=== PATIENT | female | born 1955 | race Caucasian/White ===

== ENCOUNTER → 2017-10-04 | Outpatient (CLI) | payer BC ==
[~2017-10-04] MED LIST: CEPH500C; ESTROGEN; FAMO-119 PO; FEXO180T84 PO; HYDR-1231 PO; HYDR-91 PO; LEVO500T69 PO; LVT.1T PO; METR250T32; NITR-33 PO; SUCR1TAB36 PO; TRAM50TA2 PO
--- NOTE | 2017-10-04 20:46 | Diagnostic Imaging Report ---
EXAMINATION: Three views of the lumbar spine. INDICATION: Back pain. FINDINGS: There is minimal anterior translation of L4 over L5. The vertebral body heights are preserved. Disc heights are also preserved. No significant osteophyte is noted. Mild sclerotic changes of the lower lumbar facet joints are suggested. Mild degenerative changes of the SI joints noted. IMPRESSION: There is minimal anterior translation of L4 over L5. Mild lower lumbar spine and SI joint degenerative changes seen. Dictated by: Dictated on workstation # [id number]
--- NOTE | 2017-10-04 21:08 | Diagnostic Imaging Report ---
AP and frog lateral views of the left hip. INDICATION: Left hip pain. FINDINGS: No fracture, dislocation or radiopaque foreign body seen. Minimal degenerative sclerotic change at the left hip is noted. Minimal degenerative sclerotic change at the symphysis pubis is also seen. IMPRESSION: No acute process. Dictated by: Dictated on workstation # [id number]
== END ==
LOC: RAD 14:18
PROVIDERS: ATTEND Family Medicine
DX: M47.817 Spondylosis without myelopathy or radiculopathy, lumbosacral region (principal); M25.552 Pain in left hip
CPT/HCPCS: 72100; 73502

== ENCOUNTER → 2020-06-26 | Outpatient (CLI) | payer MEDICARE, OTHER ==
[~2020-06-26] MED LIST changes: +METR-143; -METR250T32; -TRAM50TA2 PO; +TRM50T PO
--- NOTE | 2020-06-27 15:50 | Diagnostic Imaging Report ---
NAME: Ania Ellis. : 1955. EXAMINATION: CT abdomen and pelvis without contrast on 06/26/2020. INDICATION: Right flank pain with history of kidney stones. TECHNIQUE: Axial imaging through the abdomen and pelvis was performed without contrast. COMPARISON: Prior CT from 10/13/2016. FINDINGS: The lung bases are clear. The liver and gallbladder are unremarkable. No biliary ductal dilatation is identified. The pancreas and spleen are unremarkable. No adrenal mass is detected. Renal cortical low densities are again noted, suggestive of cysts. There are punctate calcifications in both kidneys, similar to the prior exam. No definite ureteral or bladder calculi are seen. There is no hydronephrosis detected. The small and large bowel loops are of normal caliber. The appendix is unremarkable. There is no free fluid or fluid collection detected. The uterus is unremarkable. The bony structures are nonacute. IMPRESSION: The findings are consistent with bilateral nonobstructing nephrolithiasis as well as bilateral renal cortical cysts. No definite ureteral calculus or hydronephrosis is detected. No acute abnormality in the abdomen or pelvis is identified. Dictated by: Dictated on workstation # [id number]
== END ==
LOC: RAD 07:23
PROVIDERS: ATTEND Urology
DX: R10.9 Unspecified abdominal pain (principal); Z87.442 Personal history of urinary calculi; Z87.440 Personal history of urinary (tract) infections
CPT/HCPCS: 74176

== ENCOUNTER 2021-07-30 18:45 | Emergency (ER) | payer MEDICARE, OTHER ==
[~2021-07-30] VITALS: Ht 152 cm; Wt 46.3 kg
[2021-07-30] MEDS ORDERED: ALEN70TA80 (19:52)
[2021-07-30] MEDS ORDERED: DOXY100C2 (19:52)
[2021-07-30 19:57] LABS: BILIRUBIN,URINE 1+ (NEGATIVE); CLARITY,URINE CLEAR; COLOR,URINE RED; GLUCOSE, URINE (UA) TRACE (NEGATIVE); KETONES,URINE NEGATIVE (NEGATIVE); LEUKOCYTE ESTERASE ,URINE TRACE (NEGATIVE); NITRITE,URINE POSITIVE (NEGATIVE); PROTEIN,URINE 1+ (NEGATIVE)
[2021-07-30 20:04] LABS: BACTERIA,URINE FEW /HPF
--- NOTE | 2021-07-30 20:12 | ED GU-Female ---
General Chief Complaint: - Reproductive Stated Complaint: UTI Nursing Triage Note: c/o burning with urination, lower abdominal, right flank pain. hx renal stones/chronic uti. Source: patient Exam Limitations: no limitations (LEATHA BROWN APRN) History of Present Illness Date Seen by Provider: Jul 30, 2021 Time Seen by Provider: 20:10 Initial Comments To ER with burning upon urination, lower abdominal pain, history of frequent recurrent urinary tract infections for which she is on suppressive Macrodantin. She follows with Dr. Marks Timing/Duration: just prior to arrival Severity/Quality: moderate Location: suprapubic Radiation: none Activities at Onset: none Prior Genitourinary Problems: none Associated Symptoms: denies symptoms (LEATHA BROWN APRN) Allergies and Home Medications Allergies Coded Allergies: Penicillins (Unverified Allergy, Intermediate, ANAPHYLAXIS, 03/07/12) Patient Home Medication List Home Medication List Reviewed: Yes (LEATHA BROWN APRN) Alendronate Sodium (Alendronate Sodium) 70 Mg Tablet, (Reported) Entered as Reported by: KELL BENOIT on 07/30/211951 Last Action: New Order Doxycycline Hyclate (Doxycycline Hyclate) 100 Mg Capsule, (Reported) Entered as Reported by: KELL BENOIT on 07/30/211951 Last Action: New Order Hyoscyamine Sulfate (Levsin-Sl) 0.125 Mg Tab.subl, 0.125 MG SL Q4H PRN for PAIN-SEE DOSE INSTRUCTIONS Prescribed by: LEATHA RBOWN on 07/30/212049 Levothyroxine Sodium (Synthroid) 100 Mcg Tablet, 1 EACH PO DAILY, (Reported) Entered as Reported by: LAYO IZQUIERDO on 03/07/121504 Last Action: Last Taken Edited [Estrogen] , DAILY, (Reported) Entered as Reported by: LAYO IZQUIERDO on 03/07/121504 Last Action: Last Taken Edited Discontinued Medications Famotidine (Pepcid) 20 Mg Tablet, 20 MG PO BID Discontinued Reason: No Longer Taking Prescribed by: SRIKANTH FOY on 05/30/16425 Last Action: Discontinued Sucralfate (Carafate) 1 Gm Tablet, 1 GM PO ACHS Discontinued Reason: No Longer Taking Prescribed by: SRIKANTH FOY on 05/30/16425 Last Action: Discontinued Tramadol HCl (Tramadol HCl) 50 Mg Tablet, 50-100 MG PO Q6H PRN for PAIN Discontinued Reason: No Longer Taking Prescribed by: SRIKANTH FOY on 05/30/16425 Last Action: Discontinued Review of Systems Review of Systems Constitutional: see HPI EENTM: see HPI Respiratory: no symptoms reported Cardiovascular: no symptoms reported Genitourinary: see HPI, burning, dysuria, frequency Musculoskeletal: no symptoms reported Skin: no symptoms reported Psychiatric/Neurological: No Symptoms Reported Endocrine: No Symptoms Reported (LEATHA BROWN APRN) Past Ppkcicz-Lozjls-Yfswdg Hx Patient Social History Tobacco Use?: No Substance use?: No Alcohol Use?: Yes Alcohol Frequency: Once in a while Pt feels they are or have been: No (LEATHA BROWN APRN) Immunizations Up To Date Tetanus Booster (TDap): Unknown (LEATHA BROWN APRN) Seasonal Allergies Seasonal Allergies: No (LEATHA BROWN APRN) Past Medical History Surgery/Hospitalization HX: renal stones, chronic uti, hypothyoidism Renal Reproductive Disorders: No 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 0.0oz. 45.803176lv; 20.00 BMI Method:Stated General Appearance: WD/WN, no apparent distress, thin (Very anxious appearing) HEENT: PERRL/EOMI, normal ENT inspection Respiratory: no respiratory distress, no accessory muscle use Gastrointestinal: normal bowel sounds, non tender Extremities: normal range of motion, non-tender Neurologic/Psychiatric: alert, normal mood/affect, oriented x 3 Skin: normal color, warm/dry (LEATHA BROWN APRN) Progress/Results/Core Measures Suspected Sepsis SIRS Temperature: Pulse: 85 Respiratory Rate: 18 Laboratory Tests 07/30/21 20:00: White Blood Count 7.8 Blood Pressure 157 /97 Mean: 117 Laboratory Tests 07/30/21 20:00: Creatinine 0.78, Platelet Count 280 (LEATHA BROWN APRN) Results/Orders Lab Results Laboratory Tests Test 07/30/21 19:43 07/30/21 20:00 Range/Units Urine Color RED H Urine Clarity CLEAR Urine pH 5.0 5-9 Urine Specific [place] <=1.005 1.016-1.022 Urine Protein 1+ H NEGATIVE Urine Glucose (UA) TRACE H NEGATIVE Urine Ketones NEGATIVE NEGATIVE Urine Nitrite POSITIVE H NEGATIVE Urine Bilirubin 1+ H NEGATIVE Urine Urobilinogen 4.0 < = 1.0 MG/DL Urine Leukocyte Esterase TRACE H NEGATIVE Urine RBC (Auto) 2+ H NEGATIVE Urine RBC 2-5 H /HPF Urine WBC 2-5 /HPF Urine Squamous Epithelial Cells 2-5 /HPF Urine Renal Epithelial Cells NONE /HPF Urine Crystals NONE /LPF Urine Bacteria FEW H /HPF Urine Casts NONE /LPF Urine Mucus NEGATIVE /LPF Urine Culture Indicated YES White Blood Count 7.8 4.3-11.0 10^3/uL Red Blood Count 4.53 3.80-5.11 10^6/uL Hemoglobin 14.0 11.5-16.0 g/dL Hematocrit 42 35-52 % Mean Corpuscular Volume 93 80-99 fL Mean Corpuscular Hemoglobin 31 25-34 pg Mean Corpuscular Hemoglobin Concent 33 32-36 g/dL Red Cell Distribution Width 11.9 10.0-14.5 % Platelet Count 280 130-400 10^3/uL Mean Platelet Volume 8.7 L 9.0-12.2 fL Immature Granulocyte % (Auto) 0 % Neutrophils (%) (Auto) 66 42-75 % Lymphocytes (%) (Auto) 24 12-44 % Monocytes (%) (Auto) 6 0-12 % Eosinophils (%) (Auto) 4 0-10 % Basophils (%) (Auto) 1 0-10 % Neutrophils # (Auto) 5.1 1.8-7.8 10^3/uL Lymphocytes # (Auto) 1.8 1.0-4.0 10^3/uL Monocytes # (Auto) 0.5 0.0-1.0 10^3/uL Eosinophils # (Auto) 0.3 0.0-0.3 10^3/uL Basophils # (Auto) 0.1 0.0-0.1 10^3/uL Immature Granulocyte # (Auto) 0.0 0.0-0.1 10^3/uL Sodium Level 140 135-145 MMOL/L Potassium Level 4.0 3.6-5.0 MMOL/L Chloride Level 105 98-107 MMOL/L Carbon Dioxide Level 23 21-32 MMOL/L Anion Gap 12 5-14 MMOL/L Blood Urea Nitrogen 14 7-18 MG/DL Creatinine 0.78 0.60-1.30 MG/DL Estimat Glomerular Filtration Rate 74 BUN/Creatinine Ratio 18 Glucose Level 101 70-105 MG/DL Calcium Level 9.4 8.5-10.1 MG/DL (WINSTON HERNANDEZ MD) Vital Signs/I&O 07/30/21 21:00 Temp 36.6 Pulse 78 Resp 18 B/P (MAP) 151/89 Pulse Ox 99 O2 Delivery Room Air 07/31/21 00:00 Intake Total 1000 ml Balance 1000 ml (WINSTON HERNANDEZ MD) Vital Signs/I&O Capillary Refill : Less Than 3 Seconds (LEATHA BROWN APRN) Blood Pressure Mean: 117 Departure Impression Primary Impression: Suprapubic pain Disposition: 01 HOME, SELF-CARE Condition: Stable Departure-Patient Inst. Decision time for Depature: 20:47 (LEATHA BROWN APRN) Referrals: VICTORINO HO DO (PCP/Family) Primary Care Physician Patient Instructions: Pelvic Pain ED Add. Discharge Instructions: 1. The cause for your lower abdominal pain is not entirely clear. There is no definitive bladder infection at this time though a culture is pending. There are no white cells in your urine to suggest infection currently. Your CAT scan also does not show any clear cause for pain and intestinal tract looks normal. 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 Marks for that. All discharge instructions reviewed with patient and/or family. Voiced understanding. Scripts Hyoscyamine Sulfate (Levsin-Sl) 0.125 Mg Tab.subl 0.125 MG SL Q4H PRN for PAIN-SEE DOSE INSTRUCTIONS, #10 TAB 0 Refills Prov: LEATHA BROWN APRN 07/30/21 ATTENDING PHYSICIAN NOTE: I was physically present as attending physician in the emergency department during the care of this patient, but I was not directly involved in the decision making or delivery of care for this patient. (WINSTON HERNANDEZ MD) LEATHA BROWN APRN Jul 30, 2021 20:11 WINSTON HERNANDEZ MD Jul 31, 2021 08:41
[2021-07-30] MEDS: LACTATED RINGERS 1,000 ML IV SCH (20:19)
[2021-07-30] MEDS: ONDANSETRON 4 MG/2 ML (SDV) Z0FRAN IVP ONE (20:19)
[2021-07-30] MEDS: KETOROLAC 30 MG/ML VIAL IVP ONE (20:19)
[2021-07-30 20:29] LABS: CALCIUM 9.4 MG/DL (8.5-10.1); CREATININE SERUM 0.78 MG/DL (0.60-1.30)
[2021-07-30 20:30] LABS: BASOPHILS # (AUTO) 0.1 10^3/uL (0.0-0.1); BASOPHILS % (AUTO) 1 % (0-10); EOSINOPHILS # (AUTO) 0.3 10^3/uL (0.0-0.3); EOSINOPHILS % (AUTO) 4 % (0-10); HEMATOCRIT 42 % (35-52); LYMPHOCYTES # (AUTO) 1.8 10^3/uL (1.0-4.0); LYMPHOCYTES % (AUTO) 24 % (12-44); MEAN CORPUSCULAR HEMOGLOBIN 31 pg (25-34); MEAN CORPUSCULAR HGB CONC 33 g/dL (32-36); MEAN CORPUSCULAR VOLUME 93 fL (80-99); MEAN PLATELET VOLUME 8.7 fL (9.0-12.2); MONOCYTES # (AUTO) 0.5 10^3/uL (0.0-1.0); MONOCYTES % (AUTO) 6 % (0-12); NEUTROPHILS # (AUTO) 5.1 10^3/uL (1.8-7.8); NEUTROPHILS % (AUTO) 66 % (42-75); PLATELET COUNT 280 10^3/uL (130-400); WHITE BLOOD COUNT 7.8 10^3/uL (4.3-11.0)
--- NOTE | 2021-07-30 20:39 | Diagnostic Imaging Report ---
PROCEDURE: CT urinary tract, rule out kidney stone. TECHNIQUE: Multiple contiguous axial images were obtained through the abdomen and pelvis without the use of intravenous contrast. Auto Exposure Controls were utilized during the CT exam to meet ALARA standards for radiation dose reduction. INDICATION: Abdominal pain. COMPARISON: 06/26/2020. FINDINGS: Unenhanced images of liver and spleen reveal no focal abnormality. There is no evidence of gallbladder, pancreatic or adrenal gland lesion. Similar to the previous study, there are scattered low density nodules in both kidneys which likely represent cysts with additional nonobstructing punctate calcifications in both kidneys. There is no hydronephrosis. There is no ureteric dilatation. Punctate calcification is seen along the posterior urinary bladder wall to the left of midline. This was seen on the previous study as well and could represent calcification within the bladder wall versus possible intraluminal stone. No free fluid or organized fluid collection is identified. IMPRESSION: Punctate nonobstructing calculi in both kidneys. Additional punctate calcification is seen along the left bladder wall possibly within the lumen. This is similar to the study of 06/26/2020 and could represent persistent calcification versus recurrent stone at the left ureterovesical junction. Clinical correlation would be useful. Dictated by: Dictated on workstation # [id number]
[2021-07-30] MEDS ORDERED: HYOS0.1283 SL (20:50)
[2021-07-30 21:00] VITALS: BP 151/89
[2021-07-30] MEDS ORDERED: RX-HYOSCYAMINE 0.125 MG SL (LEVSIN) PPK#6 ONE (21:01)
[2021-07-30] MEDS: RX-HYOSCYAMINE 0.125 MG SL (LEVSIN) PPK#6 SL STA (21:02)
== END 2021-07-30 21:03 | disposition home or self-care (01) ==
LOC: EDUNIT# 18:45 → ER 18:49
DX: R10.30 Lower abdominal pain, unspecified (principal); E03.9 Hypothyroidism, unspecified; Z79.890 Hormone replacement therapy; Z79.899 Other long term (current) drug therapy
CPT/HCPCS: 36415; 74176; 80048; 81000; 85025; 87088

== ENCOUNTER → 2022-01-08 | Outpatient (CLI) | payer MEDICARE, OTHER ==
[~2022-01-08] MED LIST changes: +ALEN70TA80; +DOXY100C5; +HYOS0.1283 SL
--- NOTE | 2022-01-08 08:50 | Diagnostic Imaging Report ---
CLINICAL INDICATION: Patient with left sinus and left facial pain. Sinusitis versus shingles. EXAM: Axial CT scan of the maxillofacial structures without IV contrast . Coronal and sagittal reformations were performed. Auto Exposure Controls were utilized during the CT exam to meet ALARA standards for radiation dose reduction. COMPARISON: Sinus CT scan without contrast dated 07/01/2016. FINDINGS: PARANASAL SINUSES: FRONTAL: Unremarkable. ETHMOID: There is minimal patchy mucosal thickening seen which has slightly improved in the interim. MAXILLARY: There is mild mucosal thickening involving both maxillary sinuses(right side more than the left) which has improved in the interim. SPHENOID: There is minimal mucosal thickening anteriorly near the sphenoethmoid recesses which has improved in the interim. OTHER PARANASAL SINUS FINDINGS: The ostiomeatal unit regions are patent. NASAL SEPTUM: There is 6 mm of rightward nasal septal deviation. VISUALIZED TEMPORAL BONE STRUCTURES: Unremarkable. BONY STRUCTURES: Unremarkable. EXTRACRANIAL SOFT TISSUE/ ORBITS: Unremarkable. IMPRESSION: 1:There is mild paranasal sinus disease. 2: Stable rightward nasal septal deviation. Dictated by: Dictated on workstation # [id number]
== END ==
LOC: RAD 08:15
PROVIDERS: ATTEND Otolaryngology Otolaryngology/Facial Plastic Surgery
DX: J32.9 Chronic sinusitis, unspecified (principal); J34.2 Deviated nasal septum
CPT/HCPCS: 70486

== ENCOUNTER 2022-02-06 20:58 | Emergency (ER) | payer MEDICARE, OTHER ==
--- NOTE | 2022-02-06 21:44 | ED GU-Female ---
General Chief Complaint: - Reproductive Stated Complaint: RECURRING UTI,ABNORMAL VAG BLEEDING Source: patient Exam Limitations: no limitations History of Present Illness Date Seen by Provider: Feb 06, 2022 Time Seen by Provider: 21:41 Initial Comments To ER with reports of recurrent UTI since January 06. Has been seeing Dr. Saúl yang, primary care Dr. Griffiths, her MANAGER CONFIGURATION Dr. Carver out of [place] in [place]. She is on Macrobid every other day for UTI prophylaxis. She was treated initially for UTI with doxycycline on January 06. Culture showed the pathogen to be resistant to that so she was transitioned to Levaquin which she has completed. However today she had severe pelvic and vaginal pain and burning. She is had intermittent nausea. She took some Pepto-Bismol at home for the nausea. That took it away. No fevers. In regards to the intermittent vaginal bleeding for a few weeks she had an ultrasound by MANAGER CONFIGURATION and is scheduled for a uterine biopsy this coming . Timing/Duration: constant, getting worse Severity/Quality: moderate Location: suprapubic Radiation: none Activities at Onset: none Prior Genitourinary Problems: none Associated Symptoms: dysuria, nausea/vomiting Allergies and Home Medications Allergies Coded Allergies: Penicillins (Unverified Allergy, Intermediate, ANAPHYLAXIS, 03/07/12) Patient Home Medication List Home Medication List Reviewed: Yes Alendronate Sodium (Alendronate Sodium) 70 Mg Tablet, (Reported) Entered as Reported by: KELL BENOIT on 07/30/211951 Doxycycline Hyclate (Doxycycline Hyclate) 100 Mg Capsule, (Reported) Entered as Reported by: KELL BENOIT on 07/30/211951 Hyoscyamine Sulfate (Levsin-Sl) 0.125 Mg Tab.subl, 0.125 MG SL Q4H PRN for PAIN- SEE DOSE INSTRUCTIONS Prescribed by: LEATHA BROWN on 07/30/212049 Levothyroxine Sodium (Synthroid) 100 Mcg Tablet, 1 EACH PO DAILY, (Reported) Entered as Reported by: LAYO IZQUIERDO on 03/07/12 150 [Estrogen] , DAILY, (Reported) Entered as Reported by: LAYO IZQUIERDO on 03/07/12 1505 Review of Systems Review of Systems Constitutional: see HPI; No chills, No fever EENTM: see HPI Respiratory: no symptoms reported Cardiovascular: no symptoms reported Genitourinary: no symptoms reported Musculoskeletal: no symptoms reported Skin: no symptoms reported Psychiatric/Neurological: No Symptoms Reported Endocrine: No Symptoms Reported Past Birwtyo-Bkwxxq-Cxatps Hx Immunizations Up To Date Tetanus Booster (TDap): Unknown Seasonal Allergies Seasonal Allergies: No Past Medical History Surgery/Hospitalization HX: renal stones, chronic uti, hypothyoidism Renal Reproductive Disorders: No 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 0.0oz. 45.421371vs; 20.00 BMI Method:Stated General Appearance: WD/WN, no apparent distress, thin (Very pleasant, very anxious appearing. She is fidgeting constantly, hypertensive, hands are shaking. States "you cant believe how sick I am". We will give her some lorazepam to help her relax while we work-up her symptoms.), other HEENT: PERRL/EOMI, normal ENT inspection Neck: non-tender, full range of motion Cardiovascular: regular rate, rhythm, no murmur Respiratory: normal breath sounds, no respiratory distress, no accessory muscle use Gastrointestinal: normal bowel sounds, non tender, soft Extremities: normal range of motion, non-tender Neurologic/Psychiatric: alert, normal mood/affect, oriented x 3 Skin: normal color, warm/dry Progress/Results/Core Measures Suspected Sepsis SIRS Temperature: Pulse: Respiratory Rate: Laboratory Tests 02/06/22 21:23: White Blood Count 9.4 Blood Pressure / Mean: Laboratory Tests 02/06/22 21:23: Creatinine 0.80, INR Comment 0.9, Platelet Count 300, Total Bilirubin 0.7 Results/Orders Lab Results Laboratory Tests Test 02/06/22 21:22 02/06/22 21:23 Range/Units Urine Color YELLOW Urine Clarity CLEAR Urine pH 7.5 5-9 Urine Specific [place] 1.010 L 1.016-1.022 Urine Protein NEGATIVE NEGATIVE Urine Glucose (UA) NEGATIVE NEGATIVE Urine Ketones NEGATIVE NEGATIVE Urine Nitrite NEGATIVE NEGATIVE Urine Bilirubin NEGATIVE NEGATIVE Urine Urobilinogen 0.2 < = 1.0 MG/DL Urine Leukocyte Esterase NEGATIVE NEGATIVE Urine RBC (Auto) 2+ H NEGATIVE Urine RBC 2-5 H /HPF Urine WBC 0-2 /HPF Urine Crystals NONE /LPF Urine Bacteria TRACE /HPF Urine Casts NONE /LPF Urine Mucus NEGATIVE /LPF Urine Culture Indicated NO White Blood Count 9.4 4.3-11.0 10^3/uL Red Blood Count 4.55 3.80-5.11 10^6/uL Hemoglobin 14.3 11.5-16.0 g/dL Hematocrit 42 35-52 % Mean Corpuscular Volume 93 80-99 fL Mean Corpuscular Hemoglobin 31 25-34 pg Mean Corpuscular Hemoglobin Concent 34 32-36 g/dL Red Cell Distribution Width 12.1 10.0-14.5 % Platelet Count 300 130-400 10^3/uL Mean Platelet Volume 8.4 L 9.0-12.2 fL Immature Granulocyte % (Auto) 0 % Neutrophils (%) (Auto) 63 42-75 % Lymphocytes (%) (Auto) 27 12-44 % Monocytes (%) (Auto) 8 0-12 % Eosinophils (%) (Auto) 1 0-10 % Basophils (%) (Auto) 1 0-10 % Neutrophils # (Auto) 5.9 1.8-7.8 10^3/uL Lymphocytes # (Auto) 2.5 1.0-4.0 10^3/uL Monocytes # (Auto) 0.8 0.0-1.0 10^3/uL Eosinophils # (Auto) 0.1 0.0-0.3 10^3/uL Basophils # (Auto) 0.1 0.0-0.1 10^3/uL Immature Granulocyte # (Auto) 0.0 0.0-0.1 10^3/uL Prothrombin Time 12.8 12.2-14.7 SEC INR Comment 0.9 0.8-1.4 Sodium Level 139 135-145 MMOL/L Potassium Level 3.8 3.6-5.0 MMOL/L Chloride Level 102 98-107 MMOL/L Carbon Dioxide Level 22 21-32 MMOL/L Anion Gap 15 H 5-14 MMOL/L Blood Urea Nitrogen 11 7-18 MG/DL Creatinine 0.80 0.60-1.30 MG/DL Estimat Glomerular Filtration Rate 81 BUN/Creatinine Ratio 14 Glucose Level 100 70-105 MG/DL Calcium Level 9.4 8.5-10.1 MG/DL Corrected Calcium 9.1 8.5-10.1 MG/DL Total Bilirubin 0.7 0.1-1.0 MG/DL Aspartate Amino Transf (AST/SGOT) 15 5-34 U/L Alanine Aminotransferase (ALT/SGPT) 17 0-55 U/L Alkaline Phosphatase 53 40-136 U/L Total Protein 7.3 6.4-8.2 GM/DL Albumin 4.4 3.2-4.5 GM/DL My Orders Orders - LEATHA BROWN SLOT MANAGER Cbc With Automated Diff (02/06/22 21:20) Comprehensive Metabolic Panel (02/06/22 21:20) Protime With Inr (02/06/22 21:20) Ua Culture If Indicated (02/06/22 21:20) Ketorolac Injection (Toradol Injection) (02/06/22 21:45) Ct Abdomen/Pelvis W Wo (02/06/22 21:37) Lorazepam Injection (Ativan Injection) (02/06/22 21:45) Iohexol Injection (Omnipaque 350 Mg/Ml 1 (02/06/22 22:45) Received Contrast (Hold Metformin- Contr (02/06/22 22:45) Ns (Ivpb) (Sodium Chloride 0.9% Ivpb Bag (02/06/22 22:45) Medications Given in ED Current Medications Medications Dose Ordered Sig/Dia Route Start Time Stop Time Status Last Admin Dose Admin Iohexol 100 ml ONCE ONCE IV 02/06/22 22:45 02/06/22 22:51 DC 02/06/22 22:40 66 ML Ketorolac Tromethamine 15 mg ONCE ONCE IVP 02/06/22 21:45 02/06/22 21:46 DC 02/06/22 22:06 15 MG Lorazepam 0.5 mg ONCE PRN IVP 02/06/22 21:45 02/06/22 22:06 0.5 MG Sodium Chloride 100 ml ONCE ONCE IV 02/06/22 22:45 02/06/22 22:51 DC 02/06/22 22:40 80 ML Vital Signs/I&O 02/06/22 21:22 Temp 36.1 Pulse 97 Resp 18 B/P (MAP) 167/112 (130) Pulse Ox 97 O2 Delivery Room Air Capillary Refill : Departure Communication (Admissions) Pelvic exam done with Peace at the bedside. There is minimal whitish adherent vaginal discharge to the vaginal araujo. Impression Primary Impression: Suprapubic pain Disposition: HOME, SELF-CARE Condition: Stable Departure-Patient Inst. Decision time for Depature: 22:56 Referrals: VICTORINO GRIFFITHS DO (PCP/Family) Primary Care Physician Patient Instructions: Pelvic Pain ED Add. Discharge Instructions: 1. Follow-up with your regular doctor next week 2. Return to ER for any concerns. All discharge instructions reviewed with patient and/or family. Voiced understanding. LEATHA BROWN SLOT MANAGER Feb 06, 2022 21:44
[2022-02-06] MEDS ORDERED: LORazepam INJ 2 MG/ML (ATIVAN) VIAL IVP PRN (21:45)
[2022-02-06] MEDS ORDERED: KETOROLAC 30 MG/ML VIAL IVP ONE (21:45)
[2022-02-06 21:46] LABS: BILIRUBIN,URINE NEGATIVE (NEGATIVE); CLARITY,URINE CLEAR; COLOR,URINE YELLOW; GLUCOSE, URINE (UA) NEGATIVE (NEGATIVE); KETONES,URINE NEGATIVE (NEGATIVE); LEUKOCYTE ESTERASE ,URINE NEGATIVE (NEGATIVE); NITRITE,URINE NEGATIVE (NEGATIVE); PH,URINE 7.5 (5-9); PROTEIN,URINE NEGATIVE (NEGATIVE)
[2022-02-06 21:46] LABS: BASOPHILS # (AUTO) 0.1 10^3/uL (0.0-0.1); BASOPHILS % (AUTO) 1 % (0-10); EOSINOPHILS # (AUTO) 0.1 10^3/uL (0.0-0.3); EOSINOPHILS % (AUTO) 1 % (0-10); HEMATOCRIT 42 % (35-52); HEMOGLOBIN 14.3 g/dL (11.5-16.0); LYMPHOCYTES # (AUTO) 2.5 10^3/uL (1.0-4.0); LYMPHOCYTES % (AUTO) 27 % (12-44); MEAN CORPUSCULAR HEMOGLOBIN 31 pg (25-34); MEAN CORPUSCULAR HGB CONC 34 g/dL (32-36); MEAN CORPUSCULAR VOLUME 93 fL (80-99); MEAN PLATELET VOLUME 8.4 fL (9.0-12.2); MONOCYTES # (AUTO) 0.8 10^3/uL (0.0-1.0); MONOCYTES % (AUTO) 8 % (0-12); NEUTROPHILS # (AUTO) 5.9 10^3/uL (1.8-7.8); NEUTROPHILS % (AUTO) 63 % (42-75); PLATELET COUNT 300 10^3/uL (130-400); WHITE BLOOD COUNT 9.4 10^3/uL (4.3-11.0)
[2022-02-06 21:54] LABS: ALBUMIN 4.4 GM/DL (3.2-4.5); POTASSIUM 3.8 MMOL/L (3.6-5.0)
[2022-02-06 21:54] LABS: BACTERIA,URINE TRACE /HPF; WBC,URINE 0-2 /HPF
[2022-02-06 21:56] LABS: CALCIUM 9.4 MG/DL (8.5-10.1)
[2022-02-06 21:57] LABS: TOTAL PROTEIN 7.3 GM/DL (6.4-8.2)
[2022-02-06 21:59] LABS: BILIRUBIN,TOTAL 0.7 MG/DL (0.1-1.0)
[2022-02-06 22:00] LABS: CREATININE SERUM 0.8 MG/DL (0.60-1.30)
[2022-02-06 22:07] LABS: INR 0.9 (0.8-1.4); PROTHROMBIN TIME PATIENT 12.8 SEC (12.2-14.7)
[2022-02-06] MEDS ORDERED: IOHEXOL 350 MG/ML 100 ML (OMNIPAQUE 350) VIAL IV ONE (22:45)
[2022-02-06] MEDS ORDERED: NS 100 ML (IVPB) BAG IV ONE (22:45)
[2022-02-06] MEDS ORDERED: HOLD METFORMIN - RECEIVED CONTRAST 20 ML VIAL IV SCH (22:45)
--- NOTE | 2022-02-06 22:47 | Diagnostic Imaging Report ---
PROCEDURE: CT abdomen and pelvis with and without contrast. TECHNIQUE: Precontrast acquisitions were acquired through the abdomen and pelvis. Multiple contiguous axial images were obtained through the abdomen and pelvis after the administration of intravenous contrast. Auto Exposure Controls were utilized during the CT exam to meet ALARA standards for radiation dose reduction. INDICATION: Vaginal bleeding, history of stones. COMPARISON: 07/30/2021. FINDINGS: Lung bases are clear. The heart is normal in size. The liver demonstrates no focal lesions. The spleen appears normal. The pancreas is normal. The adrenal glands appear normal. There are phleboliths in the left pelvis. No hydronephrosis or obstructing calculi are seen, bilaterally. There are punctate nonobstructing calculi in the inferior right kidney and the superior left kidney. There are multiple simple appearing cysts in the kidneys, bilaterally. There is cortical scarring in the posterior left kidney. No enhancing masses are seen. The aorta is normal in caliber. No lymphadenopathy is seen. Bowel loops are nondistended without obstruction. There is moderate stool in the colon. There appears to be mild thickening of the distal gastric wall. There are multiple vessels in the pelvis bilaterally, right greater than left. This can be seen with pelvic congestion syndrome. No uterine masses are seen. No lymphadenopathy is appreciated. No acute osseous abnormality is seen. IMPRESSION: 1. No uterine masses are appreciated. There are prominent pelvic vessels bilaterally, can be seen with pelvic congestion. 2. No hydronephrosis or obstructing calculi. 3. Moderate stool in the colon, please correlate for any history of constipation. 4. Mild wall thickening of the distal stomach. This may be due to decompression, but gastritis is in the differential. Dictated by: Dictated on workstation # [id number]
[2022-02-06 23:31] VITALS: BP 124/87
== END 2022-02-06 23:40 | disposition home or self-care (01) ==
LOC: EDUNIT# 20:58 → ER 21:00
DX: R10.30 Lower abdominal pain, unspecified (principal)
CPT/HCPCS: 36415; 74178; 80053; 81000; 85025; 85610; 87070; 87077; 87186; 87205; 87210; 96374; 96375

== ENCOUNTER 2023-07-05 08:00 | Outpatient (RCR) | payer MEDICARE, OTHER ==
[2023-06-21 09:22] LABS: CALCIUM 9.2 MG/DL (8.5-10.1); CREATININE SERUM 0.93 MG/DL (0.60-1.30); PHOSPHORUS 3.6 MG/DL (2.3-4.7); POTASSIUM 4.1 MMOL/L (3.6-5.0); URIC ACID 4.8 MG/DL (2.6-7.2)
[2023-06-22 10:16] LABS: CREATININE 24 HOUR,URINE 1058 MG/24H (800-1700); TOTAL VOLUME,URINE 2300 ML
== END 2023-07-08 01:35 | disposition home or self-care (01) ==
LOC: LAB 08:00
PROVIDERS: ATTEND Nurse Practitioner Family
DX: N39.0 Urinary tract infection, site not specified (principal)
CPT/HCPCS: 36415; 80048; 82340; 82507; 82570; 83945; 83970; 84075; 84100; 84105; 84550

== ENCOUNTER → 2023-10-14 | Outpatient (CLI) | payer MEDICARE, OTHER ==
--- NOTE | 2023-10-14 12:53 | Diagnostic Imaging Report ---
INDICATION: PrimaryDx Z87.442 PERSONAL HISTORY OF URI COMPARISON: None FINDINGS: Single supine radiographic view of the abdomen was obtained and demonstrates nondistended loops of small bowel. There is no large collection of free peritoneal air. Moderate air and stool are seen scattered throughout the colon. No unexpected extraosseous calcifications or radiopaque foreign bodies are seen. Bony structures show no gross acute abnormalities. IMPRESSION: 1. Nonobstructed small bowel gas pattern. 2. Moderate colonic air and stool. Please correlate for constipation Dictated by: Dictated on workstation # [id number]
--- NOTE | 2023-10-14 16:45 | Diagnostic Imaging Report ---
INDICATION: PrimaryDx Z87.442 PERSONAL HISTORY OF UTI, CALCULUS TECHNIQUE: Multiple real-time grayscale sonographic images were obtained of the kidneys. CORRELATION: None FINDINGS: RIGHT KIDNEY: 9.0 x 3.4 x 4.7 cm. LEFT KIDNEY: 9.1 x 5.6 x 4.6 cm. There are hypoechoic masses both kidneys favoring a cyst. One superior pole right exophytic, 2.2 cm maximum size. Mid inferior aspect lateral cortical cyst, 1.5 cm. On the left, midpole hypoechoic cyst, 1.4 cm. Superior pole 1.7 cm. Echogenic foci are present of both kidneys favoring nonobstructing stones. There is an echogenic foci, suspect a calcification of proximal right ureter 0.4 cm which resulted in mild hydronephrosis. URINARY BLADDER: There is presence of bilateral ureteral jets. Urinary bladder appearing unremarkable. Prevoid Volume: 216 mL. Postvoid Volume: 10 mL. IMPRESSION: 1. Probable bilateral renal cysts and nonobstructing bilateral renal stones. 2. Suspect 0.4 cm calcification of the proximal right ureter result in mild hydronephrosis. However, right ureter is visualized at the urinary bladder. Dictated by: Dictated on workstation # [id number]
== END ==
LOC: RAD 10:45
PROVIDERS: ATTEND Specialist
DX: Z87.442 Personal history of urinary calculi (principal)
CPT/HCPCS: 74018; 76770